=== PATIENT | female | born 2005 | race Hispanic/Latino ===

== ENCOUNTER 2024-04-23 19:39 | Emergency (ER) | payer OTHER ==
[~2024-04-23] VITALS: Ht 152.4 cm; Wt 54.9 kg
[2024-04-23 19:49] VITALS: PULSE 88; RESP 16; TEMP 98.2; O2SAT 99
== END 2024-04-23 20:35 | disposition home or self-care (01) ==
LOC: FSED 19:43
DX: O26.893 Other specified pregnancy related conditions, third trimester (principal); N89.8 Other specified noninflammatory disorders of vagina
CPT/HCPCS: 99282